=== PATIENT | male | born 1985 ===

== ENCOUNTER 2019-01-20 09:39 | Day surgery (SDC) | payer OTHER ==
[~2019-01-20 09:39] MED LIST: Buffered Lidocaine 1% SYRIN* 1 ML/SYRINGE INTRADERM ONE; Famotidine IV* 10 MG/ML 2 ML (20 mg) IV ONE; Lactated Ringers 1000 ML Bag* 1,000 ML IV SCH
[2019-01-20] MEDS ORDERED: Midazolam* 1 MG/ML 5 ML VIAL (5 MG) ONE (09:40)
[2019-01-20] MEDS ORDERED: Famotidine IV* 10 MG/ML 2 ML (20 mg) ONE (09:52)
[2019-01-20] MEDS ORDERED: Naloxone* 0.4 MG/ML 1 ML VIAL IV PRN (10:24)
[2019-01-20] MEDS ORDERED: Acetaminophen TAB* 325 MG PO PRN (10:24)
[2019-01-20] MEDS ORDERED: Bupivacaine 0.25% SDV* 30 ML ONE (10:30)
[2019-01-20] MEDS ORDERED: Ketorolac INJ* 30 MG/ML 1 ML VIAL ONE (10:42)
[2019-01-20] MEDS ORDERED: Propofol* 10 MG/ML 20 ML BTL ONE (10:42)
[2019-01-20] MEDS ORDERED: Lidocaine 2% PF * 5 ML VIAL ONE (10:42)
[2019-01-20] MEDS ORDERED: Ondansetron INJ* 2 MG/ML VIAL ONE (10:42)
[2019-01-20] MEDS ORDERED: fentaNYL* 50 MCG/ML 2 ML VIAL (100 MCG VIAL) ONE (10:42)
[2019-01-20 12:04] VITALS: BP 113/72
--- NOTE | 2019-01-20 14:42 | OP ---
DATE OF OPERATION: 01/20/19 [facility] DATE OF : 89 SURGEON: Morteza Marquez MD QUALIFICATION ENGINEER: RENAE Raymond ANESTHESIOLOGIST: Dr. Rodriguez. ANESTHESIA: Local MAC. PRE-OP DIAGNOSIS: Left de Quervain's disease. POST-OP DIAGNOSIS: Left de Quervain's disease. OPERATIVE PROCEDURE: Left de Quervain's release with some debulking of a very thickened tendon sheath. INDICATIONS: Mr. Ge has a very severe de Quervain's. He has developed a very thickened tendon sheath there. We talked about treatment options. He wanted to have the tendons released and have that tendon sheath nodule debulked. He understands the risks and benefits and wishes to proceed, including the risk of radial sensory nerve irritation. ESTIMATED BLOOD LOSS: 2 mL. COMPLICATIONS: None. FINDINGS: See above and below. DESCRIPTION OF PROCEDURE: Mr. Ge was seen in the preoperative holding area. The correct site, side, and procedure were identified. We came back to the operating room. I anesthetized the operative area with 0.25% plain Marcaine. The arm was then prepped and draped in usual fashion and a time-out was performed. The arm was exsanguinated with the Esmarch and the tourniquet was inflated to 225 mmHg. I made a 2 cm transverse incision just proximal to the radial styloid. Dissection was carried down. Full-thickness flaps were bluntly raised off the very thickened tendon sheath. The tendon sheath was released off the dorsal aspect. There were no accessory compartments. There was quite a bit of tenosynovitis that was all excised. I did go ahead and debulk the tendon sheath some to try to get rid of that thickened area. Once I had completed the release distally and proximally and everything was looking nice and clean, we irrigated out the wound. Skin was closed with a 4-0 Monocryl and a Steri- Strip. Wound was dressed with a soft dressing and he was taken to the recovery room in stable condition. [id number] #: [id number] [facility]
== END 2019-01-20 12:34 | disposition home or self-care (01) ==
LOC: OREAST 09:39
PROVIDERS: ATTEND Orthopaedic Surgery Hand Surgery
DX: M65.4 Radial styloid tenosynovitis [de Quervain] (principal); R22.32 Localized swelling, mass and lump, left upper limb
CPT/HCPCS: J1885; J2250; J2405; J2704; J3010; J3490